=== PATIENT | male | born 1995 | race Caucasian/White ===

== ENCOUNTER 2018-10-24 23:41 | Emergency (ER) | payer SELFPAY ==
[~2018-10-24] VITALS: Ht 182.9 cm; Wt 124.0 kg
[2018-10-24 23:45] VITALS: BP 138/82
--- NOTE | 2018-10-25 00:07 | NUR ---
Pt reports that he's up to date on tetanus.
[2018-10-25] MEDS ORDERED: DIPH,PERTUSS(ACELL),TET VAC/PF 0.5 ML IM-VACC ONE ×2 (00:30→00:31)
[2018-10-25] MEDS ORDERED: AMOXICILLIN/CLAV 875-125MG TABLET PO ONE (00:30)
[2018-10-25] MEDS ORDERED: AMOXICILLIN/CLAV 875-125MG TABLET ONE (00:30)
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
== END 2018-10-25 01:30 | disposition home or self-care (01) ==
LOC: ED 10-25 01:00
DX: S60.572A Other superficial bite of hand of left hand, initial encounter (principal); S80.872A Other superficial bite, left lower leg, initial encounter; L03.113 Cellulitis of right upper limb; W54.0XXA Bitten by dog, initial encounter; Y93.89 Activity, other specified; Y92.89 Other specified places as the place of occurrence of the external cause; Y99.8 Other external cause status
CPT/HCPCS: 90471; 90715; 99283